=== PATIENT | female | born 1955 | race Caucasian/White ===

== ENCOUNTER 2016-10-09 15:15 | Inpatient (IN) | payer MEDICAID, OTHER ==
[~2016-10-09] VITALS: Ht 154.9 cm; Wt 87.1 kg
--- NOTE | 2016-10-09 08:00 | NUR ---
awake alert, oriented, lying on right side, wanted to reposition her but refused, instructed to npo for possible surgery today but states "am been eating all night and you cant take away my soda from me", pt has a bag of food at bedside, asking for her pain shot and informed it's not time yet but states i can take it 30 minutes before time, gets mad when explained, Addendum: 10/09/16 at 1747 by BRIANNA SMITH RN wrong entry
[~2016-10-09 15:15] MED LIST: DIOVAN PO; NAPR500T3 PO; SIMV5TAB6 PO
[2016-10-09] MEDS ORDERED: VALS1TAB2 PO (15:24)
--- NOTE | 2016-10-09 15:24 | NUR ---
DR AGUILLON AT THE BEDSIDE FOR EVAL AND EXAM.
[2016-10-09] MEDS ORDERED: ASPIRIN 81 MG TAB.CHEW PO ONE (15:30)
[2016-10-09] MEDS ORDERED: ASPIRIN 81 MG TAB.CHEW ONE (15:44)
[2016-10-09 15:57] LABS: BASOPHILS % (AUTO) 0.4 % (0.0-2.0); CREATININE 0.8 mg/dL (0.6-1.3); EOSINOPHILS # (AUTO) 0.1 K/uL (0.0-0.7); EOSINOPHILS % (AUTO) 1.5 % (0.0-7.0); HEMATOCRIT 41.7 % (37-47); HEMOGLOBIN 13.6 G/DL (12.0-16.0); LYMPHOCYTES # (AUTO) 3.2 K/UL (0.8-4.8); LYMPHOCYTES % (AUTO) 36.2 % (20.5-51.5); MEAN CORPUSCULAR HEMOGLOBIN 28.2 UUG (27.0-31.0); MEAN CORPUSCULAR HGB CONC 33 g/dL (32.0-37.0); MEAN CORPUSCULAR VOLUME 86.8 FL (81.0-99.0); MONOCYTES # (AUTO) 0.6 K/UL (0.1-1.30); MONOCYTES % (AUTO) 7.2 % (0.0-11.0); NEUTROPHILS # (AUTO) 4.8 K/UL (1.8-8.9); NEUTROPHILS % (AUTO) 54.7 % (38.5-71.5); PLATELET COUNT (AUTO) 202 K/UL (150-450); POTASSIUM 3.8 mmol/L (3.5-5.1); RED BLOOD CELL COUNT(AUTO) 4.81 MIL/UL (4.2-5.4); WHITE BLOOD COUNT (AUTO) 8.7 K/UL (4.0-11.2)
[2016-10-09 16:09] LABS: BILIRUBIN,DIRECT 0.1 mg/dL (0.0-0.2); BILIRUBIN,TOTAL 0.3 mg/dL (0.2-1.0); TOTAL PROTEIN, SERUM 7.6 g/dL (6.4-8.2)
--- NOTE | 2016-10-09 16:20 | NUR ---
Pt resting in bed, denies CP at this time.
--- NOTE | 2016-10-09 17:40 | NUR ---
received pt from ER per fredi awake alert and oriented with c/o on and off chest discomfort since last week, states chest discomfort is much lesser 05/24, routine admission care rendered, oriented to bed controls and call ligth button, family at bedside, safety measures initiated
[2016-10-09 18:00] VITALS: BP 148/72
[2016-10-09] MEDS ORDERED: HYDROCODONE/APAP 5-325MG TABLET PO PRN (18:00)
[2016-10-09] MEDS ORDERED: ZOLPIDEM 5 MG TABLET PO PRN (18:00)
[2016-10-09] MEDS ORDERED: MISCELLANEOUS MED XX PRN (18:00)
--- NOTE | 2016-10-09 20:00 | NUR ---
pt in bed, resting comfertably c family at bed side. resp is even and unlabored. no sob. no acute distress. no c.o pain or discomfort at this time. pt with iv on r hand, patent and intact. call light with in reach.
[2016-10-09 20:19] VITALS: BP 118/76
[2016-10-09] MEDS ORDERED: ATORVASTATIN 10 MG TABLET PO SCH (21:00)
[2016-10-10 06:47] LABS: BASOPHILS % (AUTO) 0.3 % (0.0-2.0); EOSINOPHILS # (AUTO) 0.1 K/uL (0.0-0.7); EOSINOPHILS % (AUTO) 1.6 % (0.0-7.0); HEMATOCRIT 39.7 % (37-47); LYMPHOCYTES # (AUTO) 3.1 K/UL (0.8-4.8); LYMPHOCYTES % (AUTO) 41.3 % (20.5-51.5); MEAN CORPUSCULAR HEMOGLOBIN 28.4 UUG (27.0-31.0); MEAN CORPUSCULAR HGB CONC 33 g/dL (32.0-37.0); MEAN CORPUSCULAR VOLUME 86.8 FL (81.0-99.0); MONOCYTES # (AUTO) 0.4 K/UL (0.1-1.30); MONOCYTES % (AUTO) 5.2 % (0.0-11.0); NEUTROPHILS # (AUTO) 3.9 K/UL (1.8-8.9); NEUTROPHILS % (AUTO) 51.6 % (38.5-71.5); PLATELET COUNT (AUTO) 168 K/UL (150-450); RED BLOOD CELL COUNT(AUTO) 4.58 MIL/UL (4.2-5.4); WHITE BLOOD COUNT (AUTO) 7.5 K/UL (4.0-11.2)
[2016-10-10 06:51] VITALS: BP 141/73
[2016-10-10 06:53] LABS: CREATININE 0.8 mg/dL (0.6-1.3); POTASSIUM 3.9 mmol/L (3.5-5.1)
--- NOTE | 2016-10-10 06:57 | NUR ---
PT IN BED, RESTING COMFORTABLY, RESP IS EVEN AND UNLABORED, NO SOB. NO ACUTE DISTRESS. NO C/O PAIN OR DISCOMFORT AT THIS TIME. CALL LIGHT WITHIN REACH. WILL CONT TO MONITOR.
[2016-10-10 06:58] LABS: THYROID STIMULATING HORMONE 5.012 mIU/mL (0.358-3.740)
[2016-10-10] MEDS ORDERED: PANTOPRAZOLE SODIUM 40 MG TABLET.DR PO SCH (07:00)
--- NOTE | 2016-10-10 08:00 | NUR ---
awake alert and oriented, denies of pain at this time, up and about in the room, Tele SR 60's, for 2d echo today, call light within reach, explained plan of care- verbalized understanding
[2016-10-10] MEDS ORDERED: DICLOFENAC 75 MG TABLET.DR PO SCH (09:00)
[2016-10-10] MEDS ORDERED: ASPIRIN EC 81 MG TABLET.DR PO SCH (09:00)
[2016-10-10] MEDS ORDERED: VALSARTAN 80 MG TABLET PO SCH (09:00)
[2016-10-10] MEDS ORDERED: HYDROCHLOROTHIAZIDE 12.5 MG CAPSULE PO SCH (09:41)
[2016-10-10 11:45] VITALS: BP 119/61
--- NOTE | 2016-10-10 11:45 | NUR ---
seen by Dr Palma
--- NOTE | 2016-10-10 13:30 | NUR ---
Dr Palma spoke to family in the room
--- NOTE | 2016-10-10 14:30 | NUR ---
seen by Dr Lanier- to go home today, family at bedside
--- NOTE | 2016-10-10 15:00 | NUR ---
discharge instructions given, verbalized understanding, daughter says" doesn't need home medication instructions from pharmacy", medication instruction given by RN, saline lock removed- no swelling/redness noted on site
--- NOTE | 2016-10-10 15:15 | NUR ---
escorted to car per w/c in stable condition under daughter's care, all belongings with her
[2016-10-10] MEDS ORDERED: QUETIAPINE FUMARATE 100 MG TABLET ONE (23:02)
[2016-10-10] MEDS ORDERED: TRAZODONE 50 MG TABLET ONE (23:02)
== END 2016-10-10 15:15 | disposition home or self-care (01) | DRG 203 ==
LOC: ER 15:15 → TELE 17:26
PROVIDERS: ADMIT Internal Medicine; ATTEND Internal Medicine
DX: R07.89 Other chest pain (principal); I10 Essential (primary) hypertension; E03.9 Hypothyroidism, unspecified; F41.9 Anxiety disorder, unspecified; E78.5 Hyperlipidemia, unspecified
CPT/HCPCS: 36415; 70030-TC; 71010; 84443; 85025; 85730; 93005; 93307; A4663